=== PATIENT | female | born 2000 | race Hispanic/Latino ===

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

== ENCOUNTER 2019-04-12 22:07 | Observation (INO) | payer MEDICAID ==
[~2019-04-12] VITALS: Ht 157.5 cm; Wt 91.2 kg
[2019-04-12] MEDS ORDERED: LACTATED RINGERS 1000ML 1,000 ML IV SCH ×2 (22:30→23:30)
[2019-04-12 23:02] LABS: APPEARANCE,URINE SLIGHTLY CLOUDY (CLEAR); BILIRUBIN,URINE Negative (NEGATIVE); COLOR,URINE Dark Yellow (YELLOW); GLUCOSE, URINE (UA) Negative (NEGATIVE); KETONES,URINE 15 mg/dL (NEGATIVE); LEUKOCYTE ESTERASE ,URINE Trace (NEGATIVE); NITRATE,URINE Negative (NEGATIVE); OCCULT BLOOD,URINE Negative (NEGATIVE); PROTEIN,URINE POS 1+ mg/dL (NEGATIVE)
[2019-04-12 23:09] LABS: AMPHET/METH SCREEN,URINE NEGATIVE (NEGATIVE); BARBITURATE SCREEN, URINE NEGATIVE (NEGATIVE); BENZODIAZEPINES SCREEN,URINE NEGATIVE (NEGATIVE); CANNABINOID SCREEN,URINE NEGATIVE (NEGATIVE); COCAINE SCREEN,URINE NEGATIVE (NEGATIVE); OPIATE SCREEN,URINE NEGATIVE (NEGATIVE); PHENCYCLIDINE SCREEN,URINE NEGATIVE (NEGATIVE)
[2019-04-12 23:15] LABS: BACTERIA,URINE None Seen /HPF (None Seen); MUCUS,URINE Few LPF (None Seen); RBC,URINE None Seen /HPF (0-1); SQUAMOUS EPITHELIAL CELL,UR Moderate /HPF (0-2); WBC,URINE 0-1 /HPF (0-1)
[2019-04-12] MEDS ORDERED: TERBUTALINE SULFATE VIAL 1MG/ML SQ SCH (23:30)
[2019-04-12] MEDS ORDERED: LACTATED RINGERS 1000ML 1,000 ML IV ONE (23:37)
[2019-04-12] MEDS ORDERED: TERBUTALINE SULFATE VIAL 1MG/ML SQ ONE (23:37)
== END 2019-04-13 01:20 | disposition home or self-care (01) ==
LOC: EDH 22:07 → LDH 22:55
PROVIDERS: ADMIT Obstetrics & Gynecology; ATTEND Obstetrics & Gynecology
DX: O21.2 Late vomiting of pregnancy (principal); O26.892 Other specified pregnancy related conditions, second trimester; M54.9 Dorsalgia, unspecified; Z3A.25 25 weeks gestation of pregnancy; Z79.899 Other long term (current) drug therapy
CPT/HCPCS: 80305; 81001; 96360; 96372; 99284; G0378 ×2; J3105; J7120; 96361

== ENCOUNTER 2020-05-20 23:14 | Emergency (ER) | payer MEDICAID ==
[2020-05-20 23:41] LABS: BASOPHILS % (AUTO) 0.6 % (0.0-5.0); EOSINOPHILS % (AUTO) 3.1 % (0.0-8.0); HEMATOCRIT 39.5 % (36-48); LYMPHOCYTES % (AUTO) 27.7 % (21.0-51.0); MEAN CORPUSCULAR HEMOGLOBIN 28.7 pg (27.0-33.0); MEAN CORPUSCULAR HGB CONC 34.2 g/dL (32.0-36.0); MEAN CORPUSCULAR VOLUME 83.9 fL (80-100); MONOCYTES % (AUTO) 5.3 % (3.0-13.0); PLATELET COUNT (AUTO) 346 K/uL (130-400); RED BLOOD CELL COUNT(AUTO) 4.71 MIL/uL (4.00-5.50); RED CELL DISTRIBUTION WIDTH 12.6 % (11.0-15.5); WHITE BLOOD COUNT (AUTO) 10.5 K/uL (4.8-10.8)
[2020-05-20 23:48] LABS: APPEARANCE,URINE Clear (CLEAR); BILIRUBIN,URINE Negative (NEGATIVE); COLOR,URINE Yellow (YELLOW); GLUCOSE, URINE (UA) Negative (NEGATIVE); KETONES,URINE Negative (NEGATIVE); LEUKOCYTE ESTERASE ,URINE Negative (NEGATIVE); NITRATE,URINE Negative (NEGATIVE); OCCULT BLOOD,URINE Negative (NEGATIVE); PROTEIN,URINE Negative (NEGATIVE)
[2020-05-20 23:51] LABS: CREATININE 0.9 mg/dL (0.5-1.5)
[2020-05-21 00:02] LABS: BILIRUBIN,TOTAL 0.3 mg/dL (0.2-1.0); TOTAL PROTEIN, SERUM 8.5 g/dL (6.0-8.3)
== END 2020-05-21 03:22 | disposition home or self-care (01) ==
LOC: EDH 23:14
DX: O21.9 Vomiting of pregnancy, unspecified (principal); O26.891 Other specified pregnancy related conditions, first trimester; R10.2 Pelvic and perineal pain; Z3A.01 Less than 8 weeks gestation of pregnancy; F90.9 Attention-deficit hyperactivity disorder, unspecified type; F31.9 Bipolar disorder, unspecified
CPT/HCPCS: 36415; 76830; 80053; 81003; 83690; 84702; 85025

== ENCOUNTER 2021-02-09 12:03 | Emergency (ER) | payer MEDICAID ==
[2021-02-09 12:34] LABS: BASOPHILS % (AUTO) 0.4 % (0.0-5.0); EOSINOPHILS % (AUTO) 2.4 % (0.0-8.0); LYMPHOCYTES % (AUTO) 18.5 % (21.0-51.0); MEAN CORPUSCULAR HEMOGLOBIN 29.8 pg (27.0-33.0); MEAN CORPUSCULAR HGB CONC 34.4 g/dL (32.0-36.0); MEAN CORPUSCULAR VOLUME 86.7 fL (80-100); MONOCYTES % (AUTO) 6.1 % (3.0-13.0); NEUTROPHILS % (AUTO) 72.3 % (40.0-77.0); PLATELET COUNT (AUTO) 342 K/uL (130-400); RED CELL DISTRIBUTION WIDTH 12.2 % (11.0-15.5); WHITE BLOOD COUNT (AUTO) 9.5 K/uL (4.8-10.8)
[2021-02-09 12:38] LABS: APPEARANCE,URINE CLEAR (CLEAR); BILIRUBIN,URINE NEGATIVE (NEGATIVE); COLOR,URINE YELLOW (YELLOW); GLUCOSE, URINE (UA) NEGATIVE (NEGATIVE); KETONES,URINE NEGATIVE (NEGATIVE); LEUKOCYTE ESTERASE ,URINE NEGATIVE (NEGATIVE); NITRATE,URINE NEGATIVE (NEGATIVE); OCCULT BLOOD,URINE TRACE-LYSED (NEGATIVE); PH,URINE 6.5 (5.0-8.0); PROTEIN,URINE NEGATIVE (NEGATIVE); UROBILINOGEN,URINE 0.2 mg/dL (0.2-1.0)
[2021-02-09 12:43] LABS: CREATININE 0.7 mg/dL (0.5-1.5); POTASSIUM 4.4 mmol/L (3.5-5.1)
[2021-02-09 12:48] LABS: BACTERIA,URINE Rare /HPF (None Seen); RBC,URINE 0-1 /HPF (0-1); SQUAMOUS EPITHELIAL CELL,UR Rare /HPF (0-2); WBC,URINE 0-1 /HPF (0-1)
[2021-02-09 13:08] LABS: ALBUMIN 3.7 g/dL (3.5-5.0); BILIRUBIN,TOTAL 0.2 mg/dL (0.2-1.0); TOTAL PROTEIN, SERUM 8.3 g/dL (6.0-8.3)
[2021-02-09] MEDS ORDERED: LIDOCAINE HCL-MPF 1% 2ML VIAL ONE (13:20)
[2021-02-09] MEDS ORDERED: CEFTRIAXONE SODIUM 1 GM ONE (13:20)
== END 2021-02-09 14:43 | disposition home or self-care (01) ==
LOC: EDH 12:03
DX: O23.11 Infections of bladder in pregnancy, first trimester (principal); F90.9 Attention-deficit hyperactivity disorder, unspecified type; F31.9 Bipolar disorder, unspecified; Z98.890 Other specified postprocedural states; Z3A.10 10 weeks gestation of pregnancy
CPT/HCPCS: 36415; 76801; 80053; 81001; 83690; 84702; 85025; 96372; 99284; J0696; J3490

== ENCOUNTER 2023-05-31 02:46 | Observation (INO) | payer MEDICAID ==
[~2023-05-31] VITALS: Ht 157.5 cm; Wt 98.9 kg
[2023-05-31] VITALS (27 sets, daily range): BP systolic 98–123; BP diastolic 51–75; PULSE 62–103; RESP 15–20; O2SAT 98–99
[2023-05-31] MEDS ORDERED: ONDANSETRON 4MG INJ IVP ONE (03:00)
[2023-05-31] MEDS ORDERED: 0.9%NACL 1000ML 1,000 ML IV ONE (03:00)
[2023-05-31 03:12] LABS: BASOPHILS # (AUTO) 0.05 K/uL (0.00-0.20); BASOPHILS % (AUTO) 0.3 % (0.0-5.0); EOSINOPHILS # (AUTO) 0.07 K/uL (0.00-0.70); EOSINOPHILS % (AUTO) 0.4 % (0.0-8.0); HEMATOCRIT 37.5 % (36-48); IMMATURE GRANULOCYTE ABSOLUTE 0.08 K/uL (0-1); LYMPHOCYTES # (AUTO) 1.4 K/uL (1.0-4.8); LYMPHOCYTES % (AUTO) 7.9 % (21.0-51.0); MEAN CORPUSCULAR HEMOGLOBIN 29.3 pg (27.0-33.0); MEAN CORPUSCULAR HGB CONC 34.7 g/dL (32.0-36.0); MEAN CORPUSCULAR VOLUME 84.7 fL (79-99); MONOCYTES # (AUTO) 0.6 K/uL (0.1-1.0); MONOCYTES % (AUTO) 3.2 % (3.0-13.0); NEUTROPHILS # (AUTO) 15.2 K/uL (1.8-7.7); NEUTROPHILS % (AUTO) 87.7 % (40.0-77.0); PLATELET COUNT (AUTO) 291 K/uL (130-400); RED BLOOD CELL COUNT(AUTO) 4.43 MIL/uL (4.00-5.50); WHITE BLOOD COUNT (AUTO) 17.4 K/uL (4.8-10.8)
[2023-05-31 03:14] LABS: ADD UA MICROSCOPIC YES; APPEARANCE,URINE CLEAR (CLEAR); BILIRUBIN,URINE NEGATIVE (NEGATIVE); COLOR,URINE LIGHT-YELLOW (YELLOW); GLUCOSE, URINE (UA) NEGATIVE (NEGATIVE); KETONES,URINE 10 mg/dL (NEGATIVE); LEUKOCYTE ESTERASE ,URINE NEGATIVE Leu/uL (NEGATIVE); NITRATE,URINE NEGATIVE (NEGATIVE); PROTEIN,URINE NEGATIVE (NEGATIVE); UROBILINOGEN,URINE 0.2 mg/dL (0.2-1.0)
[2023-05-31 03:16] LABS: HCG,QUALITATIVE URINE NEGATIVE (NEGATIVE); MUCUS,URINE RARE LPF (None Seen); SQUAMOUS EPITHELIAL CELL,UR RARE /HPF (0-2)
[2023-05-31 03:21] LABS: CREATININE 0.7 mg/dL (0.5-1.5); POTASSIUM 3.6 mmol/L (3.5-5.1)
[2023-05-31 03:26] LABS: ALBUMIN 3.7 g/dL (3.5-5.0); BILIRUBIN,TOTAL 0.6 mg/dL (0.2-1.0); TOTAL PROTEIN, SERUM 7.5 g/dL (6.0-8.3)
[2023-05-31 03:30] LABS: WBC MORPHOLOGY CONSISTENT W/DIFF
[2023-05-31] MEDS ORDERED: MORPHINE 4 MG SYG IVP ONE (05:30)
[2023-05-31] MEDS ORDERED: ZOSYN 3.375GM +NS 50ML IVPB ONE (07:00)
[2023-05-31] MEDS: LACTATED RINGERS 1000ML 1,000 ML IV SCH ×2 (08:23→15:48)
[2023-05-31] MEDS: PANTOPRAZOLE 40 MG/VIAL IVP SCH (08:25)
[2023-05-31] MEDS ORDERED: IPRATROPIUM/ALBUTEROL SULFATE 3 ML SOLUTION IH PRN (08:30)
[2023-05-31] MEDS ORDERED: ONDANSETRON 4MG INJ IVP PRN (08:30)
[2023-05-31] MEDS ORDERED: KETOROLAC 15MG/ML VIAL (15MG/ML) IV PRN (08:30)
[2023-05-31] MEDS ORDERED: ACETAMINOPHEN 500 MG TABLET PO PRN (08:30)
[2023-05-31] MEDS ORDERED: MORPHINE 2 MG SYG IVP PRN (08:30)
[2023-05-31 08:37] LABS: INR < 0.93 (0.85-1.15); PROTHROMBIN TIME 10.6 SEC (9.6-11.6)
[2023-05-31 08:38] LABS: PARTIAL THROMBOPLASTIN TIME 27.2 SEC (26.3-35.5)
[2023-05-31 08:41] LABS: SARS-CoV-2, RNA, NAAT NEGATIVE SARS CoV-2 (NEGATIVE)
[2023-05-31 08:45] LABS: HEMOGLOBIN A1C 5.7 % (4.0-6.0)
[2023-05-31 08:48] LABS: MAGNESIUM 1.7 mg/dL (1.80-2.40); THYROID STIMULATING HORMONE 1.42 uIU/mL (0.36-3.74)
[2023-05-31] MEDS ORDERED: MAGNESIUM 2GM PREMIX 50ML 50 ML IV SCH (09:00)
[2023-05-31] MEDS ORDERED: ACET-2079 PO (11:12)
[2023-05-31] MEDS ORDERED: ONDANSETRON 4MG INJ ONE ×2 (11:29→13:52)
[2023-05-31] MEDS ORDERED: PROPOFOL 10 MG/ML 20ML VIAL IV ONE (11:30)
[2023-05-31] MEDS ORDERED: MIDAZOLAM HCL 1 MG/ML 2ML VIAL ONE (11:30)
[2023-05-31] MEDS ORDERED: FENTANYL CITRATE PF 50 MCG/1 ML 2ML VIAL ONE ×2 (11:30→12:32)
[2023-05-31] MEDS ORDERED: ROCURONIUM 10MG/1ML SYR 10 MG/ML ML ONE (11:30)
[2023-05-31] MEDS ORDERED: BUPIVACAINE/PF 0.25% 30ML VIAL IJ ONE (11:37)
[2023-05-31] MEDS ORDERED: NEOSTIGMINE 5MG/5ML SYR IV ONE (12:31)
[2023-05-31] MEDS ORDERED: GLYCOPYRROLATE 1 MG/5 ML SYRINGE ONE (12:31)
[2023-05-31] MEDS ORDERED: 0.9%NACL 50ML IV SCH (13:00)
[2023-05-31] MEDS ORDERED: ZOSYN 3.375GM +NS 50ML IVPB SCH (13:00)
[2023-05-31] MEDS ORDERED: METOCLOPRAMIDE 10 MG/2 ML VIAL ONE (13:52)
[2023-05-31] MEDS: ZOSYN 3.375GM +NS 50ML IVPB SCH (15:48)
[2023-06-01] MEDS: ZOSYN 3.375GM +NS 50ML IVPB SCH ×2 (00:17→08:10)
[2023-06-01 04:00] VITALS: BP 123/68; PULSE 76; RESP 16
[2023-06-01 05:08] LABS: BASOPHILS # (AUTO) 0.03 K/uL (0.00-0.20); BASOPHILS % (AUTO) 0.3 % (0.0-5.0); EOSINOPHILS # (AUTO) 0.11 K/uL (0.00-0.70); EOSINOPHILS % (AUTO) 1.1 % (0.0-8.0); HEMATOCRIT 34.4 % (36-48); IMMATURE GRANULOCYTE ABSOLUTE 0.03 K/uL (0-1); LYMPHOCYTES # (AUTO) 2.5 K/uL (1.0-4.8); LYMPHOCYTES % (AUTO) 26.3 % (21.0-51.0); MEAN CORPUSCULAR HEMOGLOBIN 28.6 pg (27.0-33.0); MEAN CORPUSCULAR HGB CONC 32.6 g/dL (32.0-36.0); MONOCYTES # (AUTO) 0.5 K/uL (0.1-1.0); NEUTROPHILS # (AUTO) 6.4 K/uL (1.8-7.7); PLATELET COUNT (AUTO) 238 K/uL (130-400); RED BLOOD CELL COUNT(AUTO) 3.91 MIL/uL (4.00-5.50); RED CELL DISTRIBUTION WIDTH 12.3 % (11.0-15.5); WHITE BLOOD COUNT (AUTO) 9.6 K/uL (4.8-10.8)
[2023-06-01 05:26] LABS: ALBUMIN 2.8 g/dL (3.5-5.0); BILIRUBIN,TOTAL 0.5 mg/dL (0.2-1.0); CREATININE 0.7 mg/dL (0.5-1.5); MAGNESIUM 1.7 mg/dL (1.80-2.40); POTASSIUM 3.2 mmol/L (3.5-5.1); TOTAL PROTEIN, SERUM 6.4 g/dL (6.0-8.3)
[2023-06-01] MEDS ORDERED: POTASSIUM CHLORIDE 20MEQ/100ML 100 ML IV PRN (07:30)
[2023-06-01] MEDS ORDERED: POTASSIUM CHLORIDE 10% ELIXIR 20 MEQ/15 ML UDCUP PO PRN (07:30)
[2023-06-01 08:00] VITALS: BP 115/69; PULSE 75; RESP 18; O2SAT 96
[2023-06-01] MEDS: PANTOPRAZOLE 40 MG/VIAL IVP SCH (08:09)
[2023-06-01] MEDS: KCL 20 MEQ ERTAB PO PRN ×3 (10:12→12:48)
[2023-06-01] MEDS ORDERED: LACTULOSE 20 GM/30 ML UDCUP PO ONE (11:30)
[2023-06-01 12:00] VITALS: BP_SYST 109; BP_SYST 133; BP_DIAS 50; BP_DIAS 79; PULSE 81; PULSE 83; RESP 18; RESP 20
== END 2023-06-01 16:05 | disposition home or self-care (01) ==
LOC: EDH 02:46 → INTOOBSV 02:47 → EDHIP 02:47 → 3AH 14:10
PROVIDERS: ADMIT Internal Medicine; ATTEND Internal Medicine
DX: K35.80 Unspecified acute appendicitis (principal); Z20.822 Contact with and (suspected) exposure to COVID-19; E66.9 Obesity, unspecified; D72.829 Elevated white blood cell count, unspecified; K76.0 Fatty (change of) liver, not elsewhere classified; F31.9 Bipolar disorder, unspecified; Q33.3 Agenesis of lung; Z98.51 Tubal ligation status; Z68.39 Body mass index [BMI] 39.0-39.9, adult; Z98.891 History of uterine scar from previous surgery; Z79.899 Other long term (current) drug therapy
CPT/HCPCS: 44970; 96361; 96365; 96366 ×2; 96375; 96368; 83036; 84443; 83735 ×2; 80053 ×2; 83690; 85025 ×2; 85610; 85730; 86850; 86900; 86901; 83605; 81001; 81025; 36415 ×2; 88302; 87635; 74176; 99291; 93005; 94664; 96376; J7030 ×2; A4600; A4215; J3010 ×2; J3490 ×3; J2710; J2250; J2405 ×3; J2270; J2543 ×4; S0164 ×2; J2765; A6206; A4649 ×3; G0378 ×6; J3475; C9113; J2704

== ENCOUNTER 2025-01-20 20:44 | Emergency (ER) | payer MEDICAID ==
[~2025-01-20] VITALS: Ht 157.5 cm; Wt 90.7 kg
[~2025-01-20 20:44] MED LIST changes: +ACET-2079 PO; -IOHEXOL-350 75 ML VIAL IV ONE
--- NOTE | 2025-01-20 20:47 | NUR ---
UA CUP PROVIDED
[2025-01-20 21:19] LABS: BASOPHILS # (AUTO) 0.04 K/uL (0.00-0.20); BASOPHILS % (AUTO) 0.4 % (0.0-5.0); EOSINOPHILS # (AUTO) 0.26 K/uL (0.00-0.70); EOSINOPHILS % (AUTO) 2.8 % (0.0-8.0); HEMATOCRIT 39.2 % (36-48); IMMATURE GRANULOCYTE ABSOLUTE 0.04 K/uL (0-1); LYMPHOCYTES # (AUTO) 2.6 K/uL (1.0-4.8); LYMPHOCYTES % (AUTO) 27.5 % (21.0-51.0); MEAN CORPUSCULAR HEMOGLOBIN 29.8 pg (27.0-33.0); MEAN CORPUSCULAR HGB CONC 33.7 g/dL (32.0-36.0); MEAN CORPUSCULAR VOLUME 88.5 fL (79-99); MONOCYTES # (AUTO) 0.5 K/uL (0.1-1.0); MONOCYTES % (AUTO) 5.7 % (3.0-13.0); NEUTROPHILS % (AUTO) 63.2 % (40.0-77.0); PLATELET COUNT (AUTO) 312 K/uL (130-400); RED BLOOD CELL COUNT(AUTO) 4.43 MIL/uL (4.00-5.50); RED CELL DISTRIBUTION WIDTH 12.5 % (11.0-15.5); WHITE BLOOD COUNT (AUTO) 9.4 K/uL (4.8-10.8)
[2025-01-20 21:22] LABS: APPEARANCE,URINE CLEAR (CLEAR); BILIRUBIN,URINE NEGATIVE (NEGATIVE); COLOR,URINE LIGHT-YELLOW (YELLOW); GLUCOSE, URINE (UA) NEGATIVE (NEGATIVE); HCG,QUALITATIVE URINE NEGATIVE (NEGATIVE); KETONES,URINE NEGATIVE (NEGATIVE); LEUKOCYTE ESTERASE ,URINE NEGATIVE Leu/uL (NEGATIVE); NITRATE,URINE NEGATIVE (NEGATIVE); PH,URINE 5.5 (5.0-8.0); PROTEIN,URINE NEGATIVE (NEGATIVE); UROBILINOGEN,URINE 0.2 mg/dL (0.2-1.0)
[2025-01-20 21:23] LABS: ADD UA MICROSCOPIC YES
[2025-01-20 21:25] LABS: BACTERIA,URINE RARE /HPF (None Seen); SQUAMOUS EPITHELIAL CELL,UR RARE /HPF (0-2); YEAST,URINE BUDDING RARE /HPF (None Seen)
[2025-01-20 21:34] LABS: CREATININE 0.6 mg/dL (0.5-1.0); POTASSIUM 4.2 mmol/L (3.5-5.1)
[2025-01-20 21:40] LABS: ALBUMIN 3.6 g/dL (3.5-5.0); BILIRUBIN,DIRECT 0.1 mg/dL (0.0-0.3); BILIRUBIN,TOTAL 0.2 mg/dL (0.2-1.0); TOTAL PROTEIN, SERUM 7.9 g/dL (6.0-8.3)
[2025-01-20] MEDS: ondanSETRON 4MG INJ IVP ONE (21:59)
[2025-01-20] MEDS: 0.9%NACL 1000ML 1,000 ML IV ONE (21:59)
[2025-01-20] MEDS: morPHINE 4 MG SYG IVP ONE (21:59)
--- NOTE | 2025-01-20 22:10 | HMCIMG ---
CT ABDOMEN/PELVIS W/O CONTRAST HISTORY: Right flank pain COMPARISON: 05/31/2023 TECHNIQUE: Multiple sequential axial images of the abdomen and pelvis were obtained from the dome of the diaphragm through symphysis pubis. Patient was not given contrast through intravenous route. Oral contrast was not given. FINDINGS: No pleural effusion is seen bilaterally. There is no evidence of parenchymal disease or pulmonary nodule of the visualized lower lungs. Degenerative changes of the thoracolumbar spine are present. The heart is not enlarged. The liver, spleen, adrenal glands and pancreas are unremarkable. There is no evidence of hydronephrosis bilaterally. No evidence of renal stone is seen. Fecal material is seen in the colon. There are normal size retroperitoneal and mesenteric lymph nodes. No ascites is seen. Appendix has been removed. Pelvic sidewalls are symmetric bilaterally. Bladder is moderately distended. IMPRESSION: 1. No hydronephrosis is seen. No ascites seen. CT was performed with one or more following dose reduction techniques: automated exposure control, adjustment of the mA and kv according to patient's size, or use of a iterative reconstruction technique.
--- NOTE | 2025-01-20 22:16 | ERN ---
ED Note History of Present Illness Stated Complaint: SIDE PAIN Chief Complaint: Flank Pain Time Seen by MD: 20:49 Time Seen by Midlevel: 20:49 Dictation: The patient is a 24-year-old female with a history of , intra-abdominal surgery a year ago, patient unable to recall what surgery they did who presents to the emergency department with complaints of right flank pain onset 1:30 a.m. associated with nausea. Patient denies any hematuria, urinary discomfort, denies fever diarrhea, constipation or vomiting. Allergies: Coded Allergies: No Known Drug Allergies (Unverified Allergy, Unknown, 04/12/19) Home Meds Active Scripts Acetaminophen with Codeine (Acetaminophen-Cod #3 Tablet) 1 Each Tablet, 1 EACH PO Q4HPRN for pain, #30 TAB Prov:DK REY MD 05/31/23 Past Medical History Past Medical History: Other Additional Past Medical Hx: LEARNING DELAY Surgical History: Other RN Note Reviewed/Agreed w/PFSH: Yes Review of System Dictation Constitutional: Negative for fever,chills, and weight loss Eyes: Negative for injury, pain,redness, and discharge ENT: Negative for injury,pain or swelling Cardiovascular: Negative for chest pain, palpitations, and edema Respiratory: Negative for shortness of breath, cough, and wheezing, Abdomen/GI: Negative for abdominal pain, nausea, vomiting, diarrhea, and constipation Back: Negative for injury and pain positive for right flank pain : Negative for injury, bleeding and discharge MS/Extremity: Negative for injury and deformity Skin: Negative for rash, and discoloration Neuro: Negative for headache, weakness, numbness, tingling, and seizure Psych: Negative for suicide ideation, homicidal ideation, and hallucinations Initial Vital Sign VS Vital Signs Date Time Temp Pulse Resp B/P (MAP) Pulse Ox O2 Delivery O2 Flow Rate FiO2 01/20/25 20:45 98.6 91 16 143/74 100 Room Air Physical Exam Dictation Vital Signs reviewed General Appearance: Alert, oriented x 3, no acute distress, well developed, nourished. Head and Face: non-traumatic. Eyes: PERRL, pink conjunctivas, eyelid no trauma, anterior chamber with arcus senilis. Ears: Pinnas intact and no signs of trauma or erythema ear canals clear and no discharge TM no erythema Nose: No discharge, no bleeding. Oropharynx: Mouth normal, tongue pink. pharynx clear,no erythema, tonsils no exudates, no abscesses noted, mucous membrane moist Neck: Supple, non-tender, no thyromegaly, no masses, no JVD, no bruits Breast:Deferred Chest:No tenderness, no crepitus, no paradoxical movement, no retractions Lungs:Clear, well-ventilated, symmetric, no rales, no wheezing, no rhonchi, no stridor, good breath sounds bilaterally Heart: Regular rate, regular rhythm, no murmur, no gallops Vascular: no peripheral edema, Abdomen: Soft, positive bowel sounds, nondistended, no guarding, nontender, no rebound, no masses no hepatomegaly, no splenomegaly, no Schulz's sign, no hernias. Rectal: Deferred Genital: Deferred Neurological: Normal speech, motor function intact, sensory function intact Musculoskeletal: Neck nontender, full range of motion, back nontender, full range of motion, Extremities: nontender, full range of motion Skin: Color pink, dry, no turgor, no rash, no lacerations, no abrasions, no contusions. Lymphatic: Deferred Results (Laboratory/Radiology) Laboratory/Radiology Laboratory Tests Test 01/20/25 21:11 White Blood Count 9.4 K/uL (4.8-10.8) Red Blood Count 4.43 MIL/uL (4.00-5.50) Hemoglobin 13.2 g/dL (12.0-16.0) Hematocrit 39.2 % (36-48) Mean Corpuscular Volume 88.5 fL (79-99) Mean Corpuscular Hemoglobin 29.8 pg (27.0-33.0) Mean Corpuscular Hemoglobin Concent 33.7 g/dL (32.0-36.0) Red Cell Distribution Width 12.5 % (11.0-15.5) Platelet Count 312 K/uL (130-400) Mean Platelet Volume 9.4 fL (7.5-10.5) Immature Granulocyte % (Auto) 0.4 % (0-1) Neutrophils (%) (Auto) 63.2 % (40.0-77.0) Lymphocytes (%) (Auto) 27.5 % (21.0-51.0) Monocytes (%) (Auto) 5.7 % (3.0-13.0) Eosinophils (%) (Auto) 2.8 % (0.0-8.0) Basophils (%) (Auto) 0.4 % (0.0-5.0) Neutrophils # (Auto) 6.0 K/uL (1.8-7.7) Lymphocytes # (Auto) 2.6 K/uL (1.0-4.8) Monocytes # (Auto) 0.5 K/uL (0.1-1.0) Eosinophils # (Auto) 0.26 K/uL (0.00-0.70) Basophils # (Auto) 0.04 K/uL (0.00-0.20) Absolute Immature Granulocyte (auto 0.04 K/uL (0-1) Nucleated Red Blood Cells 0.0 % (0.0-0.19) Urine Color LIGHT-YELLOW (YELLOW) Urine Appearance CLEAR (CLEAR) Urine pH 5.5 (5.0-8.0) Urine Specific [place] 1.022 (1.001-1.031) Urine Protein NEGATIVE mg/dL (NEGATIVE) Urine Glucose (UA) NEGATIVE mg/dL (NEGATIVE) Urine Ketones NEGATIVE mg/dL (NEGATIVE) Urine Occult Blood +- (TRACE) (NEGATIVE) H Urine Nitrate NEGATIVE (NEGATIVE) Urine Bilirubin NEGATIVE mg/dL (NEGATIVE) Urine Urobilinogen 0.2 mg/dL (0.2-1.0) Urine Leukocyte Esterase NEGATIVE Ignacio/uL Urine RBC 2-5 /HPF (0-1) H Urine WBC 2-5 /HPF (0-1) H Urine Squamous Epithelial Cells RARE /HPF (0-2) Urine Bacteria RARE /HPF (None Seen) Urine Yeast RARE /HPF (None Seen) Urine HCG, Qualitative NEGATIVE (NEGATIVE) Sodium Level 137 mmol/L (136-145) Potassium Level 4.2 mmol/L (3.5-5.1) Chloride Level 101 mmol/L (101-111) Carbon Dioxide Level 29 mmol/L (21-32) Blood Urea Nitrogen 10 mg/dL (7-18) Creatinine 0.6 mg/dL (0.5-1.0) Glomerular Filtration Rate Calc 128 mL/min (>90) Random Glucose 109 mg/dL (70-105) H Total Calcium 9.0 mg/dL (8.5-10.1) Total Bilirubin 0.2 mg/dL (0.2-1.0) Direct Bilirubin 0.1 mg/dL (0.0-0.3) Aspartate Amino Transf (AST/SGOT) 16 U/L (10-37) Alanine Aminotransferase (ALT/SGPT) 26 U/L (12-78) Alkaline Phosphatase 95 U/L (50-136) Total Protein 7.9 g/dL (6.0-8.3) Albumin 3.6 g/dL (3.5-5.0) REASON: rigth flank pain, r/o kidney stones ORDERING PHYSICIAN: KINDRA BELTRAN PROCEDURE: ABD PEL WO - CT ABDOMEN/PELVIS W/O CONTRAST CT ABDOMEN/PELVIS W/O CONTRAST HISTORY: Right flank pain COMPARISON: 05/31/2023 TECHNIQUE: Multiple sequential axial images of the abdomen and pelvis were obtained from the dome of the diaphragm through symphysis pubis. Patient was not given contrast through intravenous route. Oral contrast was not given. FINDINGS: No pleural effusion is seen bilaterally. There is no evidence of parenchymal disease or pulmonary nodule of the visualized lower lungs. Degenerative changes of the thoracolumbar spine are present. The heart is not enlarged. The liver, spleen, adrenal glands and pancreas are unremarkable. There is no evidence of hydronephrosis bilaterally. No evidence of renal stone is seen. Fecal material is seen in the colon. There are normal size retroperitoneal and mesenteric lymph nodes. No ascites is seen. Appendix has been removed. Pelvic sidewalls are symmetric bilaterally. Bladder is moderately distended. IMPRESSION: 1. No hydronephrosis is seen. No ascites seen. CT was performed with one or more following dose reduction techniques: automated exposure control, adjustment of the mA and kv according to patient's size, or use of a iterative reconstruction technique. Labs Reviewed?: Yes ED Course ED Course Orders Procedure Category Date Status Time Cbc With Differential LAB 01/20/25 Complete 21:01 Urinalysis Profile LAB 01/20/25 Complete 21:01 0.9%Nacl 1000ml (Ns PHA 01/20/25 Complete 1000ml) 21:30 Morphine 4mg Syg PHA 01/20/25 Complete (Morphine 4mg Syg) 21:30 Ondansetron 4mg Inj PHA 01/20/25 Complete (Zofran 4mg Inj) 21:30 Basic Metabolic Panel LAB 01/20/25 Complete 21:01 ,Urine Test LAB 01/20/25 Complete 21:01 Hepatic Function Panel LAB 01/20/25 Complete 21:01 Ct Abdomen/Pelvis W/O CT 01/20/25 Resulted Contrast 21:24 Lactulose 20 Gm/30 Ml PHA 01/20/25 Verified Udcup (Constulose 23:00 Current Medications Medications (Trade) Dose Ordered Sig/Hyun Route PRN Reason Start Time Stop Time Status Last Admin Dose Admin Morphine Sulfate (morPHINE 4MG SYG) 4 mg ONCE ONCE IVP 01/20/25 21:30 01/20/25 21:31 DC 01/20/25 21:59 Ondansetron HCl (zoFRAN 4MG INJ) 4 mg ONCE ONCE IVP 01/20/25 21:30 01/20/25 21:31 DC 01/20/25 21:59 Sodium Chloride 1,000 ml @ 0 mls/hr ONCE ONCE IV 01/20/25 21:30 01/20/25 21:31 DC 01/20/25 21:59 Vital Signs Date Time Temp Pulse Resp B/P (MAP) Pulse Ox O2 Delivery O2 Flow Rate FiO2 01/20/25 20:45 98.6 91 16 143/74 100 Room Air Medical Decision Making MDM The patient is a 24-year-old female with a history of , intra-abdominal surgery a year ago, patient unable to recall what surgery they did who presents to the emergency department with complaints of right flank pain onset 1:30 a.m. associated with nausea. Patient denies any hematuria, urinary discomfort, denie s fever diarrhea, constipation or vomiting. CBC showed no leukocytosis, no anemia, chemistry showed no electrolyte imbalance, normal renal function, urinalysis showed no leukocyte esterase, no nitrites. CT abdomen and pelvis showed no hydronephrosis, no kidney stones. Fecal material seen in the colon. Patient reports she had a bowel movement today but reports she does have constipation. No other acute pathology. Patient in no acute distress. Stable vital signs we will be discharged to follow up with the his PCP. Differential diagnosis: Kidney stones, pyelonephritis, UTI, back strain Need for hospitalization: Patient does not meet criteria for hospitalization. There are no social concerns with this patient. DX & DISP Disposition: Discharge Departure Impression: Primary Impression: Right flank pain Additional Impression: Constipation Condition: Stable Scripts Lactulose (Lactulose) 10 Gram/15 Ml Solution 30 ML PO BID for constipation, #500 ML 0 Refills Prov: KINDRA BELTRAN 01/20/25 Additional Instructions: Please follow up with your primary doctor in 1-2 days. If symptoms worsen please return to ER. Increase your fiber intake at who with fruits, increase the fluid intake. Take medications as prescribed. FOLLOW-UP WITH PRIMARY CARE PROVIDER IN 1 TO 2 DAYS. TAKE MEDICATIONS DIRECTED HERE IN THE EMERGENCY ROOM. OKAY TO CONTINUE HOME MEDICATIONS UNLESS OTHERWISE DISCUSSED DURING YOUR VISIT IN THE EMERGENCY ROOM TODAY. RETURN TO YOUR NEAREST EMERGENCY ROOM IF SYMPTOMS WORSEN OR IF THERE IS NO IMPROVEMENT. CALL 911 IF YOU NEED IMMEDIATE ASSISTANCE. TAKE TYLENOL OR MOTRIN [id number] NEEDED AND IF NO CONTRAINDICATIONS ARE PRESENT. INCREASE ORAL HYDRATION. A WOUND CULTURE OR URINE CULTURE WAS ORDERED HERE IN THE EMERGENCY ROOM DEPARTMENT PLEASE FOLLOW-UP WITH PRIMARY CARE PROVIDER AND ADVISE THEM TO GET REPEAT PORTS FROM OUR FACILITY. IF YOU HAD ANY KATELIN WRAP/SPLINTS THAT WERE APPLIED HERE, PLEASE DO NOT REMOVE THEM UNTIL YOU SEE YOUR PRIMARY CARE OR SPECIALTY. Referrals: SELF,REFERRAL (PCP) Time of Disposition: 22:33 I have reviewed the case, and I agree with, Diagnosis and Plan KINDRA BELTRAN Jan 20, 2025 22:16
[2025-01-20] MEDS ORDERED: LACT-441 PO (22:34)
[2025-01-20] MEDS: LACTULOSE 20 GM/30 ML UDCUP PO ONE (22:44)
[2025-01-20 23:23] VITALS: BP 96/57; PULSE 75; RESP 18; TEMP 97.9; O2SAT 99
== END 2025-01-20 23:23 | disposition home or self-care (01) ==
LOC: EDH 20:44
DX: K59.00 Constipation, unspecified (principal); R10.9 Unspecified abdominal pain; Z79.899 Other long term (current) drug therapy
CPT/HCPCS: 99285; 74176; 96374; 96375; 80076; 80048; 85025; 81001; 81025; 36415; J7030; J2405; J2270

== ENCOUNTER 2025-02-08 02:17 | Emergency (ER) | payer MEDICAID ==
[~2025-02-08] VITALS: Ht 152.4 cm; Wt 96.2 kg
[~2025-02-08 02:17] MED LIST changes: +LACT-441 PO
--- NOTE | 2025-02-08 02:32 | ERN ---
ED Note History of Present Illness Stated Complaint: C/O CP WITH SOB, ANXIETY Chief Complaint: Shortness of Breath Time Seen by MD: 02:22 Dictation: This is a 24-year-old female who presented to the emergency room with complaints of chest discomfort and shortness of breath and feeling anxious. At presentation she was in hyperventilating state. No fever chills or rigors no cough sputum or hemoptysis. Patient apparently was at [facility] a week ago with similar presentation and a chest x-ray EKG was done. She denied smoking history. And patient had tubal ligation is not on control Temperature 98.7� pulse 112 respirations 20 blood pressure 115/87 pulse oximetry 98% on room air Chronic medical problems include anxiety ADHD and learning delay and extreme obesity with a BMI of 41.4 Patient's Wells score-4.5 points moderate risk-16.2% chance of PE Allergies: Coded Allergies: No Known Drug Allergies (Unverified Allergy, Unknown, 04/12/19) Home Meds Active Scripts Hydroxyzine HCl (Hydroxyzine HCl) 25 Mg Tablet, 1 TAB PO TID for anxiety for 5 Days, #15 TAB 0 Refills Prov:SHEN GALLEGOS MD 02/08/25 Lactulose (Lactulose) 10 Gram/15 Ml Solution, 30 ML PO BID for constipation, #500 ML 0 Refills Prov:KINDRA BELTRAN 01/20/25 Acetaminophen with Codeine (Acetaminophen-Cod #3 Tablet) 1 Each Tablet, 1 EACH PO Q4HPRN for pain, #30 TAB Prov:DK REY MD 05/31/23 Past Medical History Past Medical History: Anxiety, Other Additional Past Medical Hx: ADHD Surgical History: Appendectomy, Other Surgical History Other: Family History: Negative Social History: Negative History: Not Applicable RN Note Reviewed/Agreed w/PFSH: Yes Review of System Dictation Constitutional: Negative for fever,chills, and weight loss Eyes: Negative for injury, pain,redness, and discharge ENT: Negative for injury,pain or swelling Cardiovascular: Negative for chest pain, palpitations, and edema Respiratory: Positive for shortness of breath, denied cough, and wheezing, Abdomen/GI: Negative for abdominal pain, nausea, vomiting, diarrhea, and constipation Back: Negative for injury and pain : Negative for injury, bleeding and discharge MS/Extremity: Negative for injury and deformity Skin: Negative for rash, and discoloration Neuro: Negative for headache, weakness, numbness, tingling, and seizure Psych: Negative for suicide ideation, homicidal ideation, and hallucinations Initial Vital Sign VS Vital Signs Date Time Temp Pulse Resp B/P (MAP) Pulse Ox O2 Delivery O2 Flow Rate FiO2 02/08/25 02:20 98.8 112 20 115/87 98 Room Air 02/08/25 03:11 0 21 Physical Exam Dictation General: awake, alert, morbidly obese female, severe tachypnea using accessory muscles of respiration Head/Face: Normocephalic, atraumatic Eyes: PERRL, EOMI, vision at baseline ENT: oral cavity clear, TMs clear, no signs of infection Neck: Trachea midline, supple, no nuchal rigidity Cardiovascular: RRR, normal S1/S2, No MRGs, no JVD Respiratory: CTAB, no respiratory distress, No rales or wheezes Abdomen: Soft, non-tender, non-distended, normal bowel sounds, no guarding or rebound. Skin: Warm, dry, normal turgor, no rash MS/Extremity: Pulses equal, no cyanosis, neurovascular intact, FROM Neuro: COAx4, GCS 15, strength 5/5, CN 2-12 intact, normal cerebellar exam, normal gait, Psych: Normal behavior, mood, and affect normal Extremities-trace edema without any palpable cords, Homans sign is negative Results (Laboratory/Radiology) Laboratory/Radiology Laboratory Tests Test 02/08/25 03:00 White Blood Count 10.7 K/uL (4.8-10.8) Red Blood Count 4.45 MIL/uL (4.00-5.50) Hemoglobin 13.6 g/dL (12.0-16.0) Hematocrit 38.4 % (36-48) Mean Corpuscular Volume 86.3 fL (79-99) Mean Corpuscular Hemoglobin 30.6 pg (27.0-33.0) Mean Corpuscular Hemoglobin Concent 35.4 g/dL (32.0-36.0) Red Cell Distribution Width 12.3 % (11.0-15.5) Platelet Count 347 K/uL (130-400) Mean Platelet Volume 9.6 fL (7.5-10.5) Immature Granulocyte % (Auto) 0.3 % (0-1) Neutrophils (%) (Auto) 55.3 % (40.0-77.0) Lymphocytes (%) (Auto) 35.5 % (21.0-51.0) Monocytes (%) (Auto) 6.3 % (3.0-13.0) Eosinophils (%) (Auto) 2.0 % (0.0-8.0) Basophils (%) (Auto) 0.6 % (0.0-5.0) Neutrophils # (Auto) 5.9 K/uL (1.8-7.7) Lymphocytes # (Auto) 3.8 K/uL (1.0-4.8) Monocytes # (Auto) 0.7 K/uL (0.1-1.0) Eosinophils # (Auto) 0.22 K/uL (0.00-0.70) Basophils # (Auto) 0.06 K/uL (0.00-0.20) Absolute Immature Granulocyte (auto 0.03 K/uL (0-1) Nucleated Red Blood Cells 0.0 % (0.0-0.19) Sodium Level 137 mmol/L (136-145) Potassium Level 3.9 mmol/L (3.5-5.1) Chloride Level 102 mmol/L (101-111) Carbon Dioxide Level 20 mmol/L (21-32) L Blood Urea Nitrogen 20 mg/dL (7-18) H Creatinine 0.8 mg/dL (0.5-1.0) Glomerular Filtration Rate Calc 105 mL/min (>90) Random Glucose 105 mg/dL (70-105) Total Calcium 9.3 mg/dL (8.5-10.1) Troponin I High Sensitivity 7 ng/L (4-50) B-Type Natriuretic Peptide < 5 pg/mL (0-100) Human Chorionic Gonadotropin, Quant 1 mIU/mL (0-5) Labs Reviewed?: Yes EKG Comment: 12 lead EKG done on 02/08/2025 at 2:26 a.m. a.m. showed a heart rate of 96, MS interval 135, QRS 91, QT/QTC 346/438 Impression normal sinus rhythm with sinus tachycardia no acute STT wave e levations noted EKG rhythm strip-normal sinus rhythm with no acute STT wave changes. Interpreted by ER MD Dr. Gallegos ED Course ED Course Orders Procedure Category Date Status Time 12 Lead Ekg Tracing- EKG 02/08/25 Complete Technical 02:25 O2 Nc Keep Sats CPOE 02/08/25 Transmitted Greater 92% 02:27 Cbc With Differential LAB 02/08/25 Complete 02:27 Hcg,Quantitative LAB 02/08/25 Complete 02:27 Chest 1vw RAD 02/08/25 Taken 02:27 Ipratropium/Albuterol PHA 02/08/25 Complete Neb (Duoneb) 02:30 Alprazolam 0.25mg PHA 02/08/25 Complete (Xanax 0.25mg) 02:30 Basic Metabolic Panel LAB 02/08/25 Complete 02:27 Alprazolam 0.5mg PHA 02/08/25 Complete (Xanax 0.5mg) 04:[address] Ct Chest Pe Protocol CT 02/08/25 Taken Wwo Cont 04:27 B-Type Natriuretic LAB 02/08/25 Complete Peptide 04:27 Troponin I High LAB 02/08/25 Complete Sensitivity 04:27 Iohexol (Omnipaque) PHA 02/08/25 Complete 05:41 Current Medications Medications (Trade) Dose Ordered Sig/Hyun Route PRN Reason Start Time Stop Time Status Last Admin Dose Admin Albuterol (DUOneb) 1 udvial ONCE ONCE IH 02/08/25 02:30 02/08/25 02:31 DC 02/08/25 02:48 Alprazolam (XANax 0.25MG) 0.25 mg ONCE ONCE PO 02/08/25 02:30 02/08/25 02:31 DC 02/08/25 03:02 Alprazolam (XANax 0.5MG) 0.5 mg ONCE ONCE PO 02/08/25 04:00 02/08/25 04:01 DC 02/08/25 04:25 Iohexol (Omnipaque) 75 ml STK-MED ONCE IV 02/08/25 05:41 02/08/25 05:41 DC Vital Signs Date Time Temp Pulse Resp B/P (MAP) Pulse Ox O2 Delivery O2 Flow Rate FiO2 02/08/25 06:47 104 18 136/85 97 Room Air* 0 21 02/08/25 04:27 98.6 102 18 135/74 98 Room Air* 0 21 02/08/25 03:11 106 22 122/88 99 Room Air* 0 21 02/08/25 02:49 99 20 02/08/25 02:20 98.8 112 20 115/87 98 Room Air We will perform diagnostic labs, advanced imaging and administer medications according to the patient's complaint. Once the results are available, will review and personally interpreted the labs to rule out any acute life- threatening emergency the trach require immediate intervention and treatment. I will then re-evaluate the patient after treatment and diagnostic exams have return to determine whether the patient requires any further testing, can safely be discharged home or need further admission to hospital for additional treatment and evaluation. Labs reviewed CBC with a normal limits urine test is serum test is negative BNP 7 is significant for a BUN and creatinine of 20 and 0.8 Chest x-ray unremarkable for any acute infiltrate 5:00 a.m.-I had a long discussion with the patient and spouse and after the anxiolytic patient's respiratory distress is less however she still appears dyspneic to me. With recurrent episodes in initially when she came in she was tachycardic with a heart rate of 112. EKG shows a sinus tachycardia. Even though her Wells score is in the moderate risk category, with a obesity I updated them that I will pursue CT scan of the chest with a PE protocol to evaluate for a PE. If negative patient could have had a panic attack 6:40 a.m. preliminary radiology report for a CT PE protocol-I spoke with Dr. Felix Pham, there is no evidence of PE I updated the patient and her spouse we will discharge her to see a psychiatrist or her primary care physician to follow up for the panic attacks Medical Decision Making MDM MDM: Differential diagnosis: Panic attack, aspiration event, pulmonary thromboembolic disease, flash pulmonary edema Rationale: Tests considered and ordered secondary to shared decision making include: Previous outside records reviewed: Old ER visits. Risk of complication and/or morbidity or mortality of patient management: None Medications-Per medication reconciliation Need for hospitalization: Patient does not meet criteria for hospitalization. Need for emergency major/minor surgery: No There are no social concerns with this patient. Prescription drug management Prescriptions will include symptomatic care Patient's prior external medical records from other ER visits were reviewed by me as indicated. Prior testing and results from previous visits were reviewed. Prior tests were taken into account with medical decision making and resource utilization, independent historian/historians were used to obtain complete medical history. I independently interpreted the test that were performed, results were reviewed by me and considered findings on radiology if ordered. Medical management and examination interpretation discussions were had by me with other qualified healthcare professionals as indicated for the patient's care. Problem List Problem List: (1) Panic attack DX & DISP Disposition: Discharge Departure Impression: Primary Impression: Panic attack Condition: Stable Scripts Hydroxyzine HCl (Hydroxyzine HCl) 25 Mg Tablet 1 TAB PO TID for anxiety for 5 Days, #15 TAB 0 Refills Prov: SHEN GALLEGOS MD 02/08/25 Additional Instructions: Patient and the caregiver have been informed of all the diagnostic tests and the imaging conducted during the today's visit to the emergency room and has verbalized understanding of the results I have personally reviewed and interpreted all diagnostic exams performed here in the ER today as well as the vital signs documented by the nursing staff. The patient is now being discharged to home and should follow up with the primary care physician or the specialist as directed by the ER staff. Follow-up with primary care provider in 1 to 2 days. Take medications as directed here in the emergency room. Okay to continue home medications unless otherwise discussed during your visit in the emergency room today. Return to your nearest emergency room if symptoms worsen or if there is no improvement. Call 911 if you need immediate assistance. Take Tylenol or Motrin [id number] [id number] as needed and if no contraindications are present. Increase oral hydration. A wound culture or urine culture was ordered here in the emergency room department please follow-up with primary care provider and advise them to get repeat ports from our facility. If you had any Anthony wrap/splints that were applied here, please do not remove them until you see your primary care or s pecialty. Referrals: SELF,REFERRAL (PCP) SHEN GALLEGOS MD February 08, 2025 02:32
[2025-02-08] MEDS: IpraTROPium/alBUTERol SULFATE 3 ML SOLUTION IH ONE (02:48)
[2025-02-08 02:49] VITALS: PULSE 99; RESP 20
[2025-02-08] MEDS: ALPRAZolam 0.25 MG TABLET PO ONE (03:02)
[2025-02-08 03:08] LABS: BASOPHILS # (AUTO) 0.06 K/uL (0.00-0.20); BASOPHILS % (AUTO) 0.6 % (0.0-5.0); EOSINOPHILS # (AUTO) 0.22 K/uL (0.00-0.70); HEMATOCRIT 38.4 % (36-48); IMMATURE GRANULOCYTE ABSOLUTE 0.03 K/uL (0-1); LYMPHOCYTES # (AUTO) 3.8 K/uL (1.0-4.8); LYMPHOCYTES % (AUTO) 35.5 % (21.0-51.0); MEAN CORPUSCULAR HEMOGLOBIN 30.6 pg (27.0-33.0); MEAN CORPUSCULAR HGB CONC 35.4 g/dL (32.0-36.0); MEAN CORPUSCULAR VOLUME 86.3 fL (79-99); MONOCYTES # (AUTO) 0.7 K/uL (0.1-1.0); MONOCYTES % (AUTO) 6.3 % (3.0-13.0); NEUTROPHILS # (AUTO) 5.9 K/uL (1.8-7.7); NEUTROPHILS % (AUTO) 55.3 % (40.0-77.0); PLATELET COUNT (AUTO) 347 K/uL (130-400); RED BLOOD CELL COUNT(AUTO) 4.45 MIL/uL (4.00-5.50); RED CELL DISTRIBUTION WIDTH 12.3 % (11.0-15.5); WHITE BLOOD COUNT (AUTO) 10.7 K/uL (4.8-10.8)
--- NOTE | 2025-02-08 03:12 | NUR ---
PT ARRIVED TO ED FOR ANXIETY AND SOB. PT HAS HX OF ANXIETY AND ADHD AND TAKING PRESCRIBED MEDS. PT VOICED AT 0100 STARTED WITH ANXIETY AND WORSTENING SINCE THEN.
[2025-02-08 03:54] LABS: POTASSIUM 3.9 mmol/L (3.5-5.1)
[2025-02-08 04:02] LABS: CREATININE 0.8 mg/dL (0.5-1.0)
[2025-02-08] MEDS: ALPRAZolam 0.5 MG TABLET PO ONE (04:25)
[2025-02-08 04:27] VITALS: TEMP 98.6
[2025-02-08] MEDS ORDERED: IOHEXOL-350 75 ML VIAL IV ONE (05:41)
[2025-02-08] MEDS ORDERED: HYDR-3421 PO (06:26)
--- NOTE | 2025-02-08 06:33 | EKG ---
[facility] Test Date: 2025-02-08 Test Time: 02:26:33 Pat Name: LAUREN ESCAMILLA Department: ED Room: Gender: F Risk Developer: [id number] : 2000 Requested By: SHEN SIM Order Number: [id number] Reading MD: Tico Roberts Measurements Intervals [place] Rate: 96 P: 16 TX: 135 QRS: 71 QRSD: 91 T: 39 QT: 346 QTc: 438 Interpretive Statements Sinus rhythm Compared to ECG 05/31/2023 08:05:01 No significant changes Electronically Signed On 02-08-2025 18:57:37 CDT by Tico Roberts Please click the below link to view image of tracing.
[2025-02-08 06:47] VITALS: BP 136/85; PULSE 104; RESP 18; O2SAT 97
--- NOTE | 2025-02-08 06:54 | NUR ---
[employer] [facility] in [facility] - 02/08/25 at 0654 by KAMRON REPORT GIVEN TO HO CHOWDARY
--- NOTE | 2025-02-08 08:34 | HMCIMG ---
CT angiogram chest CLINICAL INDICATION: sudden shortness fo breath COMPARISON: None. CT Dose Index (CTDI): 113.50 mGy Dose Length Product (DLP): 1408.10 total mGy PROTOCOL: Contrast: 100 cc of Isovue-370, injected IV, no complications Examination is done at 2.5 millimeter volumetric acquisition after contrast administration. Photography is done at 5 millimeter thick intervals for the thorax. FINDINGS: There is no evidence of pulmonary embolism. The airway is intact. The trachea and major bronchi are unremarkable. No pulmonary infiltrates or mass lesions are seen. No pleural effusions are identified. The exam of the shreya and mediastinum is unremarkable. No evidence of hilar enlargement is seen. The aorta shows no aneurysmal dilatation or significant atheromatous calcification. There is no thoracic aortic dissection. No significant brachiocephalic vascular abnormalities are seen. The heart is unremarkable. It is not enlarged. No significant coronary arterial calcifications are seen. There is no pericardial effusion. The rib cage appears unremarkable. The soft tissues of the chest wall are unremarkable. The dorsal spine shows no significant abnormalities. Limited evaluation of the upper abdomen demonstrates no gross abnormalities. IMPRESSION: No evidence of pulmonary embolism. Clear lungs. This study was performed using dose reduction techniques to include automated exposure control and/or adjustment of the mA and/or kV according to patient size.
--- NOTE | 2025-02-08 09:08 | HMCIMG ---
Exam Type: CHEST 1VW Clinical Information: Dyspnea/SOB Comparison: None Findings: The lungs are clear of infiltrates. The heart is normal in size. The bony and soft tissue structures of the chest are unremarkable. Impression: Clear lungs.
== END 2025-02-08 07:07 | disposition home or self-care (01) ==
LOC: EDH 02:17
DX: F41.0 Panic disorder [episodic paroxysmal anxiety] (principal); R10.2 Pelvic and perineal pain; Z90.49 Acquired absence of other specified parts of digestive tract
CPT/HCPCS: 99285; 71270; 71045; 84484; 80048; 83880; 84702; 85025; 36415; 93005; 94640; Q9967

== ENCOUNTER 2025-06-06 12:32 | Emergency (ER) | payer MEDICAID ==
[~2025-06-06] VITALS: Ht 157.5 cm; Wt 97.1 kg
[~2025-06-06 12:32] MED LIST changes: +HYDR-3421 PO
[2025-06-06] MEDS: MAGNESIUM CITRATE 296 ML SOLUTION PO ONE (12:49)
[2025-06-06] MEDS ORDERED: POLY17PO4 PO (13:50)
--- NOTE | 2025-06-06 13:53 | ERN ---
General Chief Complaint: Abdominal Pain Stated Complaint: ABD PAIN Time Seen by MD: 12:37 Time Seen by Midlevel: 12:37 Source: patient History of Present Illness Initial Comments Patient is a 25 y/o female with a PMH of constipation presenting to the ED for evaluation of constipation x2 days ago. last bowel movement is reported x2 days ago. No other concerns at this time. Allergies: Coded Allergies: No Known Drug Allergies (Unverified Allergy, Unknown, 04/12/19) Home Meds Active Scripts Hydroxyzine HCl (Hydroxyzine HCl) 25 Mg Tablet, 1 TAB PO TID for anxiety for 5 Days, #15 TAB 0 Refills Prov:SHEN SIM MD 02/08/25 Lactulose (Lactulose) 10 Gram/15 Ml Solution, 30 ML PO BID for constipation, #500 ML 0 Refills Prov:KINDRA BELTRAN 01/20/25 Acetaminophen with Codeine (Acetaminophen-Cod #3 Tablet) 1 Each Tablet, 1 EACH PO Q4HPRN for pain, #30 TAB Prov:DK REY MD 05/31/23 Past Medical History Past Medical History: Anxiety, Bipolar, Other Medical History Other: ADHD Past Surgical History: Appendectomy, Other Surgical History Other: Family History Family History: Negative Social History Social History: Negative Female( History) History: Not Applicable ROS Dictation CONSTITUTIONAL: Negative except for HPI HEAD/FACE: Negative except for HPI EENT: Negative except for HPI RESPIRATORY: Negative except for HPI GASTROINTESTINAL/ABDOMINAL: Negative except for HPI GENITOURINARY: Negative except for HPI MUSCULOSKELETAL: Negative except for HPI INTEGUMENTARY: Negative except for HPI NEUROLOGICAL/PSYCH: Negative except for HPI HEMATOLOGIC/LYMPHATIC: Negative except for HPI All Systems Negative, Except as noted above. 13 point review of systems assessed and all negative except for above. Physical Exam Physical Exam Dictation Vital Signs reviewed General Appearance: Alert, oriented x 3, no acute distress, well developed, nourished. Head and Face: non-traumatic. Eyes: PERRL, pink conjunctivas, eyelid no trauma, anterior chamber with arcus senilis. Ears: Pinnas intact and no signs of trauma or erythema ear canals clear and no discharge TM no erythema Nose: No discharge, no bleeding. Oropharynx: Mouth normal, tongue pink, pharynx clear,no erythema, tonsils no exudates, no abscesses noted, mucous membrane moist Neck: Supple, non-tender, no thyromegaly, no masses, no JVD, no bruits Breast:Deferred Chest:No tenderness, no crepitus, no paradoxical movement, no retractions Lungs:Clear, well-ventilated, symmetric, no rales, no wheezing, no rhonchi, no stridor, good breath sounds bilaterally Heart: Regular rate, regular rhythm, no murmur, no gallops Vascular: no peripheral edema, Abdomen: Soft, positive bowel sounds, nondistended, no guarding, nontender, no rebound, no masses no hepatomegaly, no splenomegaly, no Schulz's sign, no hernias. Rectal: Deferred Genital: Deferred Neurological: Normal speech, motor function intact, sensory function intact Musculoskeletal: Neck nontender, full range of motion, back nontender, full range of motion, Extremities: nontender, full range of motion Skin: Color pink, dry, no turgor, no rash, no lacerations, no abrasions, no contusions. Lymphatic: Deferred MDM MDM: Differential diagnosis: Constipation, UTI, fecal impaction There are no social concerns with this patient. Prescription drug management Prescriptions will include: Miralax Medical management and examination interpretation discussions were had by me with other qualified healthcare professionals as indicated for the patient's care. ED Course Orders Procedure Category Date Status Time Magnesium Citrate PHA 06/06/25 Complete (Magnesium Citrate) 13:00 *Nursing CPOE 06/06/25 Transmitted Communication: 12:40 Current Medications Medications (Trade) Dose Ordered Sig/Hyun Route PRN Reason Start Time Stop Time Status Last Admin Dose Admin Magnesium Citrate (Magnesium Citrate) 296 ml ONCE ONCE PO 06/06/25 13:00 06/06/25 13:01 DC 06/06/25 12:49 Vital Signs Date Time Temp Pulse Resp B/P (MAP) Pulse Ox O2 Delivery O2 Flow Rate FiO2 06/06/25 12:34 98.2 72 18 135/84 98 DX & DISP Disposition: Discharge Departure Impression: Primary Impression: Constipation Condition: Stable Scripts Polyethylene Glycol 3350 (Miralax) 17 Gram Powd.pack 17 GM PO DAILY for constipation, #20 PACKET 0 Refills Prov: WENCESLAO WARNER 06/06/25 Referrals: SELF,REFERRAL (PCP) Time of Disposition: 13:51 I have reviewed the case, and I agree with, Diagnosis and Plan I performed the substantive portion of the visit. I have reviewed and personally made and approve the management plan that is documented in the note by myself or the BENNIE. I acknowledge for responsibility for the patient's management plan. WENCESLAO WARNER Jun 06, 2025 13:53
[2025-06-06 14:47] VITALS: BP 124/73; PULSE 83; RESP 16; TEMP 97.8; O2SAT 98
== END 2025-06-06 14:52 | disposition home or self-care (01) ==
LOC: EDH 12:32
DX: K59.00 Constipation, unspecified (principal); F41.9 Anxiety disorder, unspecified; F31.9 Bipolar disorder, unspecified; Z90.49 Acquired absence of other specified parts of digestive tract
CPT/HCPCS: 99282

== ENCOUNTER 2025-06-12 21:16 | Emergency (ER) | payer MEDICAID ==
[~2025-06-12] VITALS: Ht 157.5 cm; Wt 96.6 kg
[~2025-06-12 21:16] MED LIST changes: +POLY17PO4 PO
[2025-06-12 21:34] VITALS: TEMP 98.3
[2025-06-12 21:35] LABS: ADD UA MICROSCOPIC YES; APPEARANCE,URINE CLEAR (CLEAR); GLUCOSE, URINE (UA) NEGATIVE (NEGATIVE); LEUKOCYTE ESTERASE ,URINE 75 Leu/uL (NEGATIVE); NITRATE,URINE NEGATIVE (NEGATIVE); OCCULT BLOOD,URINE SMALL (NEGATIVE)
[2025-06-12 21:38] LABS: SQUAMOUS EPITHELIAL CELL,UR RARE /HPF (0-2)
[2025-06-12] MEDS: FAMOTIDINE 20MG VIAL IV ONE (21:45)
[2025-06-12] MEDS: 0.9%NACL 1000ML 1,000 ML IV STA (21:45)
[2025-06-12 21:52] LABS: IMMATURE GRANULOCYTE ABSOLUTE 0.02 K/uL (0-1); NUCLEATED RED BLOOD CELLS 0.0 % (0.0-0.19); PLATELET COUNT (AUTO) 356 K/uL (130-400); RED BLOOD CELL COUNT(AUTO) 4.37 MIL/uL (4.00-5.50); RED CELL DISTRIBUTION WIDTH 12.2 % (11.0-15.5); WHITE BLOOD COUNT (AUTO) 9.5 K/uL (4.8-10.8)
[2025-06-12 22:24] LABS: ASPARTATE AMINOTRANSFERASE 40.0 U/L (10-37); HCG,QUANTITATIVE 0.0 mIU/mL (0-5); TOTAL PROTEIN, SERUM 8.4 g/dL (6.0-8.3)
[2025-06-12 22:26] LABS: CREATININE 0.6 mg/dL (0.5-1.0); GLOMERULAR FILTR. RATE CALC 127.0 mL/min (>90); GLUCOSE,RANDOM 88.0 mg/dL (70-105); SODIUM SERUM 136.0 mmol/L (136-145); UREA NITROGEN, BLOOD 12.0 mg/dL (7-18)
[2025-06-12] MEDS: LIDOCAINE HCL 2% VISCOUS 15 ML UDCUP PO ONE (22:42)
[2025-06-12] MEDS: MAG/ALUM/SIMETH 30 ML UDCUP PO ONE (22:43)
[2025-06-12] MEDS: DICYCLOMINE HCL 10 MG/5 ML ML PO ONE (22:43)
[2025-06-12] MEDS ORDERED: FAMO-136 PO (23:08)
[2025-06-12] MEDS ORDERED: ONDA-243 PO (23:08)
[2025-06-12] MEDS ORDERED: MACR100 PO (23:09)
--- NOTE | 2025-06-12 23:10 | ERN ---
ED Note History of Present Illness Stated Complaint: C/O LEFT LOWER BACK PAIN RADIATING TO ABD X 5 DAYS Chief Complaint: Abdominal Pain Time Seen by MD: 21:19 Time Seen by Midlevel: 21:22 Dictation: 25-year-old female with no past medical history coming in with complaints of epigastric pain and left upper quadrant pain onset about four days ago, no nausea no vomiting or diarrhea. Patient was recently seen here for constipation and states that has resolved, last BM was about an hour and a half ago normal. Allergies: Coded Allergies: No Known Drug Allergies (Unverified Allergy, Unknown, 04/12/19) Home Meds Active Scripts Polyethylene Glycol 3350 (Miralax) 17 Gram Powd.pack, 17 GM PO DAILY for constipation, #20 PACKET 0 Refills Prov:WENCESLAO WARNER 06/06/25 Hydroxyzine HCl (Hydroxyzine HCl) 25 Mg Tablet, 1 TAB PO TID for anxiety for 5 Days, #15 TAB 0 Refills Prov:SHEN SIM MD 02/08/25 Lactulose (Lactulose) 10 Gram/15 Ml Solution, 30 ML PO BID for constipation, #500 ML 0 Refills Prov:KINDRA BELTRAN BANDMILL OPERATOR 01/20/25 Acetaminophen with Codeine (Acetaminophen-Cod #3 Tablet) 1 Each Tablet, 1 EACH PO Q4HPRN for pain, #30 TAB Prov:DK REY MD 05/31/23 Past Medical History Past Medical History: Anxiety, Bipolar, Other Additional Past Medical Hx: HX OF ADHD Surgical History: Appendectomy, Other, Surgical History Other: Family History: Negative Social History: Negative History: Not Applicable LMP: May 09, 2025 Review of System Dictation Constitutional: Negative for fever,chills, and weight loss Eyes: Negative for injury, pain,redness, and discharge ENT: Negative for injury,pain or swelling Cardiovascular: Negative for chest pain, palpitations, and edema Respiratory: Negative for shortness of breath, cough, and wheezing, Abdomen/GI: Complaining of abdominal pain Back: Negative for injury and pain : Negative for injury, bleeding and discharge MS/Extremity: Negative for injury and deformity Skin: Negative for rash, and discoloration Neuro: Negative for headache, weakness, numbness, tingling, and seizure Psych: Negative for suicide ideation, homicidal ideation, and hallucinations Review of Systems: was completed Initial Vital Sign VS Vital Signs Date Time Temp Pulse Resp B/P (MAP) Pulse Ox O2 Delivery O2 Flow Rate FiO2 06/12/25 21:17 98.8 93 20 124/65 100 Room Air 06/12/25 21:34 0 21 Physical Exam Dictation General: awake, alert, NAD Head/Face: Normocephalic, atraumatic Eyes: PERRL, EOMI, vision at baseline ENT: oral cavity clear, TMs clear, no signs of infection Neck: Trachea midline, supple, no nuchal rigidity Cardiovascular: RRR, normal S1/S2, No MRGs, no JVD Respiratory: CTAB, no respiratory distress, No rales or wheezes Abdomen: Soft, non-tender, non-distended, normal bowel sounds, no guarding or rebound. Skin: Warm, dry, normal turgor, no rash MS/Extremity: Pulses equal, no cyanosis, neurovascular intact, FROM Neuro: COAx4, GCS 15, strength 5/5, CN 2-12 intact, normal cerebellar exam, normal gait, Psych: Normal behavior, mood, and affect normal Results (Laboratory/Radiology) Laboratory/Radiology Laboratory Tests Test 06/12/25 21:25 06/12/25 21:41 06/12/25 22:05 Urine Color LIGHT-YELLOW (YELLOW) Urine Appearance CLEAR (CLEAR) Urine pH 6.5 (5.0-8.0) Urine Specific [place] 1.021 (1.001-1.031) Urine Protein NEGATIVE mg/dL (NEGATIVE) Urine Glucose (UA) NEGATIVE mg/dL (NEGATIVE) Urine Ketones NEGATIVE mg/dL (NEGATIVE) Urine Occult Blood SMALL (NEGATIVE) H Urine Nitrate NEGATIVE (NEGATIVE) Urine Bilirubin NEGATIVE mg/dL (NEGATIVE) Urine Urobilinogen 0.2 mg/dL (0.2-1.0) Urine Leukocyte Esterase 75 Ignacio/uL (NEGATIVE) H Urine RBC 6-10 /HPF (0-1) H Urine WBC 11-25 /HPF (0-1) H Urine Squamous Epithelial Cells RARE /HPF (0-2) Urine Bacteria FEW /HPF (None Seen) White Blood Count 9.5 K/uL (4.8-10.8) Red Blood Count 4.37 MIL/uL (4.00-5.50) Hemoglobin 13.1 g/dL (12.0-16.0) Hematocrit 38.1 % (36-48) Mean Corpuscular Volume 87.2 fL (79-99) Mean Corpuscular Hemoglobin 30.0 pg (27.0-33.0) Mean Corpuscular Hemoglobin Concent 34.4 g/dL (32.0-36.0) Red Cell Distribution Width 12.2 % (11.0-15.5) Platelet Count 356 K/uL (130-400) Mean Platelet Volume 9.7 fL (7.5-10.5) Immature Granulocyte % (Auto) 0.2 % (0-1) Neutrophils (%) (Auto) 65.7 % (40.0-77.0) Lymphocytes (%) (Auto) 24.4 % (21.0-51.0) Monocytes (%) (Auto) 7.1 % (3.0-13.0) Eosinophils (%) (Auto) 2.3 % (0.0-8.0) Basophils (%) (Auto) 0.3 % (0.0-5.0) Neutrophils # (Auto) 6.2 K/uL (1.8-7.7) Lymphocytes # (Auto) 2.3 K/uL (1.0-4.8) Monocytes # (Auto) 0.7 K/uL (0.1-1.0) Eosinophils # (Auto) 0.22 K/uL (0.00-0.70) Basophils # (Auto) 0.03 K/uL (0.00-0.20) Absolute Immature Granulocyte (auto 0.02 K/uL (0-1) Nucleated Red Blood Cells 0.0 % (0.0-0.19) Total Bilirubin 0.5 mg/dL (0.2-1.0) Direct Bilirubin 0.1 mg/dL (0.0-0.3) Aspartate Amino Transf (AST/SGOT) 40 U/L (10-37) H Alanine Aminotransferase (ALT/SGPT) 27 U/L (12-78) Alkaline Phosphatase 101 U/L (50-136) Total Protein 8.4 g/dL (6.0-8.3) H Albumin 3.6 g/dL (3.5-5.0) Lipase 28 U/L (16-77) Human Chorionic Gonadotropin, Quant 0 mIU/mL (0-5) Sodium Level 136 mmol/L (136-145) Potassium Level 3.7 mmol/L (3.5-5.1) Chloride Level 101 mmol/L (101-111) Carbon Dioxide Level 29 mmol/L (21-32) Blood Urea Nitrogen 12 mg/dL (7-18) Creatinine 0.6 mg/dL (0.5-1.0) Glomerular Filtration Rate Calc 127 mL/min (>90) Random Glucose 88 mg/dL (70-105) Total Calcium 9.0 mg/dL (8.5-10.1) Labs Reviewed?: Yes ED Course ED Course Orders Procedure Category Date Status Time Cbc With Differential LAB 06/12/25 Complete 21:24 Hepatic Function Panel LAB 06/12/25 Complete 21:24 Lipase LAB 06/12/25 Complete 21:24 Urinalysis Profile LAB 06/12/25 Complete 21:24 Hcg,Quantitative LAB 06/12/25 Complete 21:24 0.9%Nacl 1000ml (Ns PHA 06/12/25 Complete 1000ml) 21:24 Famotidine 20mg Vial PHA 06/12/25 Complete (Pepcid 20mg Vial) 21:30 Ondansetron 4mg Inj PHA 06/12/25 Complete (Zofran 4mg Inj) 21:30 Culture Urine MIAN 06/12/25 In Process 21:36 Basic Metabolic Panel LAB 06/12/25 Complete 21:59 Ceftriaxone 1g Vial PHA 06/12/25 Complete (Rocephine 1g Inj) 22:00 Lidocaine Hcl 2% PHA 06/12/25 Complete Viscous (Lidocaine Hcl 22:30 Mag/Alum/Simeth 30ml PHA 06/12/25 Complete (Maalox Plus 30ml) 22:30 Dicyclomine Hcl PHA 06/12/25 Complete (Bentyl 10mg/5ml 22:30 Current Medications Medications (Trade) Dose Ordered Sig/Hyun Route PRN Reason Start Time Stop Time Status Last Admin Dose Admin Al Hydroxide/Mg Hydroxide (MAALox PLUS 30ML) 30 ml ONCE ONCE PO 06/12/25 22:30 06/12/25 22:39 DC 06/12/25 22:43 Ceftriaxone Sodium (ROCEphine 1G INJ) 1 gm ONCE STAT IVPB 06/12/25 22:00 06/12/25 22:11 DC 06/12/25 22:16 Dicyclomine HCl (Bentyl 10mg/5ml Syrup) 10 mg ONCE ONCE PO 06/12/25 22:30 06/12/25 22:39 DC 06/12/25 22:43 Famotidine (Pepcid 20mg Vial) 20 mg ONCE ONCE IV 06/12/25 21:30 06/12/25 21:31 DC 06/12/25 21:45 Lidocaine HCl (Lidocaine HCl 2% Viscous) 10 ml ONCE ONCE PO 06/12/25 22:30 06/12/25 22:39 DC 06/12/25 22:42 Ondansetron HCl (zoFRAN 4MG INJ) 4 mg ONCE ONCE IVP 06/12/25 21:30 06/12/25 21:31 DC 06/12/25 21:45 Sodium Chloride 1,000 ml @ 1,000 mls/hr Q1H STAT IV 06/12/25 21:24 06/12/25 22:23 DC 06/12/25 21:45 Vital Signs Date Time Temp Pulse Resp B/P (MAP) Pulse Ox O2 Delivery O2 Flow Rate FiO2 06/12/25 21:34 98.2 93 20 124/65 100 Room Air* 0 21 06/12/25 21:17 98.8 93 20 124/65 100 Room Air Medical Decision Making MDM MDM: 25-year-old female with no past medical history coming in with complaints of epigastric pain and left upper quadrant pain onset about four days ago, no nausea no vomiting or diarrhea. Patient was recently seen here for constipation and states that has resolved, last BM was about an hour and a half ago normal. CBC shows no leukocytosis, no anemia, no thrombocytopenia. Chemistry unremarkable. No electrolyte abnormality. No transaminitis. Lipase within normal range. After fluids, and GI cocktail patient states he feels much better. Educated patient more than like she she has gastritis or GERD. Educated to avoid eating any spicy, greasy, fatty foods. Patient admitted to eating this frequent. Educated that they does not resolve after diet change she needs to see a GI specialist. Patient verbalized understanding, answered all questions. Differential diagnosis: GERD, PUD, gastritis Rationale: Tests considered and ordered secondary to shared decision making include: Previous outside records reviewed: Old ER visits. Risk of complication and/or morbidity or mortality of patient management: None Medications-Per medication reconciliation Need for hospitalization: Patient does not meet criteria for hospitalization. Need for emergency major/minor surgery: No There are no social concerns with this patient. Prescription drug management Prescriptions will include symptomatic care Patient's prior external medical records from other ER visits were reviewed by me as indicated. Prior testing and results from previous visits were reviewed. Prior tests were taken into account with medical decision making and resource utilization, independent historian/historians were used to obtain complete medical history. I independently interpreted the test that were performed, results were reviewed by me and considered findings on radiology if ordered. Medical management and examination interpretation discussions were had by me with other qualified healthcare professionals as indicated for the patient's care. DX & DISP Disposition: Discharge Departure Impression: Primary Impression: Gastritis Additional Impression: UTI (urinary tract infection) Condition: Stable Scripts Nitrofurantoin/Nitrofuran Mac (Macrobid) 100 Mg Cap 1 CAP PO BID for 7 Days, #14 CAP 0 Refills Prov: RAMOS ASTUDILLO NP 06/12/25 Famotidine (Pepcid) 20 Mg Tablet 1 TAB PO BID for 30 Days, #60 TAB 0 Refills Prov: RAMOS ASTUDILLO NP 06/12/25 Ondansetron (Ondansetron Odt) 4 Mg Tab.rapdis 4 MG PO Q6HPRN PRN for nausea, #16 TAB 0 Refills Prov: RAMOS ASTUDILLO NP 06/12/25 Additional Instructions: Avoid eating any spicy, greasy, fatty foods. You can also take probiotics to help heal your gut bacteria. Follow up with the PCP in 1-2 days for any worsening symptoms. Referrals: SELF,REFERRAL (PCP) Time of Disposition: 23:08 I have reviewed the case, and I agree with, Diagnosis and Plan RAMOS ASTUDILLO NP Jun 12, 2025 23:10
[2025-06-12 23:13] VITALS: BP 128/72; PULSE 88; RESP 16; O2SAT 100
== END 2025-06-12 23:21 | disposition home or self-care (01) ==
LOC: EDH 21:16
DX: K29.70 Gastritis, unspecified, without bleeding (principal); N39.0 Urinary tract infection, site not specified; F41.9 Anxiety disorder, unspecified; R10.2 Pelvic and perineal pain; F31.9 Bipolar disorder, unspecified; Z90.49 Acquired absence of other specified parts of digestive tract
CPT/HCPCS: 99284; 96374; 96375; 96361; 80076; 80048; 84702; 83690; 85025; 87086 ×2; 87186; 81001; 36415; J3490; J7030; J0696; J2405

== ENCOUNTER 2025-09-15 14:41 | Emergency (ER) | payer MEDICAID ==
[~2025-09-15] VITALS: Ht 152.4 cm; Wt 102.1 kg
[~2025-09-15 14:41] MED LIST changes: +FAMO-136 PO; +MACR100 PO; +ONDA-243 PO
[2025-09-15 14:42] VITALS: BP 142/88; PULSE 68; RESP 18; TEMP 100.2
--- NOTE | 2025-09-15 14:46 | ERN ---
ED Note History of Present Illness Stated Complaint: HEADACHE Chief Complaint: Flu Symptoms Time Seen by MD: 14:44 Dictation: This is a 25-year-old female who presented to the emergency room with complaints of flu type symptoms along with headache body aches cough and congestion that started about 2 days ago. She denied any nausea vomitings diarrhea abdominal pain. No history of any sputum. No wheezing. Temperature a 100.2 pulse 68 respirations 18 blood pressure 142/88 with a pulse oximetry of 98% on room air Chronic problems include anxiety, bipolar, ADHD. Surgical history appy and C- section Allergies: Coded Allergies: No Known Drug Allergies (Unverified Allergy, Unknown, 04/12/19) Home Meds Active Scripts Nitrofurantoin/Nitrofuran Mac (Macrobid) 100 Mg Cap, 1 CAP PO BID for 7 Days, #14 CAP 0 Refills Prov:RAMOS ASTUDILLO [employer] 06/12/25 Famotidine (Pepcid) 20 Mg Tablet, 1 TAB PO BID for 30 Days, #60 TAB 0 Refills Prov:RAMOS ASTUDILLO [employer] 06/12/25 Ondansetron (Ondansetron Odt) 4 Mg Tab.rapdis, 4 MG PO Q6HPRN PRN for nausea, #16 TAB 0 Refills Prov:RAMOS ASTUDILLO CNP 06/12/25 Polyethylene Glycol 3350 (Miralax) 17 Gram Powd.pack, 17 GM PO DAILY for constipation, #20 PACKET 0 Refills Prov:WENCESLAO WARNER PAC 06/06/25 Hydroxyzine HCl (Hydroxyzine HCl) 25 Mg Tablet, 1 TAB PO TID for anxiety for 5 Days, #15 TAB 0 Refills Prov:SHEN SIM MD 02/08/25 Lactulose (Lactulose) 10 Gram/15 Ml Solution, 30 ML PO BID for constipation, #500 ML 0 Refills Prov:KINDRA BELTRAN 01/20/25 Acetaminophen with Codeine (Acetaminophen-Cod #3 Tablet) 1 Each Tablet, 1 EACH PO Q4HPRN for pain, #30 TAB Prov:DK REY MD 05/31/23 Past Medical History Past Medical History: Anxiety, Bipolar, Other Additional Past Medical Hx: HX OF ADHD Surgical History: Appendectomy, Other, Surgical History Other: Family History: Negative Social History: Negative History: Not Applicable RN Note Reviewed/Agreed w/PFSH: Yes Review of System Dictation Constitutional: Positive for fever, body aches, congestion Eyes: Negative for injury, pain,redness, and discharge ENT: Negative for injury,pain or swelling Cardiovascular: Negative for chest pain, palpitations, and edema Respiratory: Negative for shortness of breath, cough, and wheezing, Abdomen/GI: Negative for abdominal pain, nausea, vomiting, diarrhea, and constipation Back: Negative for injury and pain : Negative for injury, bleeding and discharge MS/Extremity: Negative for injury and deformity Skin: Negative for rash, and discoloration Neuro: Negative for , weakness, numbness, tingling, and seizure positive for headache Psych: Negative for suicide ideation, homicidal ideation, and hallucinations Initial Vital Sign VS Vital Signs Date Time Temp Pulse Resp B/P (MAP) Pulse Ox O2 Delivery O2 Flow Rate FiO2 09/15/25 14:42 100.2 68 18 142/88 98 Physical Exam Dictation General: awake, alert, NAD Head/Face: Normocephalic, atraumatic Eyes: PERRL, EOMI, vision at baseline ENT: oral cavity clear, TMs clear, no signs of infection Neck: Trachea midline, supple, no nuchal rigidity Cardiovascular: RRR, normal S1/S2, No MRGs, no JVD Respiratory: CTAB, no respiratory distress, No rales or wheezes Abdomen: Soft, non-tender, non-distended, normal bowel sounds, no guarding or rebound. Skin: Warm, dry, normal turgor, no rash MS/Extremity: Pulses equal, no cyanosis, neurovascular intact, FROM Neuro: COAx4, GCS 15, strength 5/5, CN 2-12 intact, normal cerebellar exam, normal gait, Psych: Normal behavior, mood, and affect normal Extremities-trace edema without any palpable cords, Homans sign is negative Results (Laboratory/Radiology) Laboratory/Radiology Laboratory Tests Test 09/15/25 15:15 Influenza Type A Antigen Negative For Type A Influenza Type B Antigen Negative For Type B SARS-CoV-2 Antigen (Rapid) PRESUMPTIVE NEGATIVE Group A Streptococcus Rapid negative (NEGATIVE) Labs Reviewed?: Yes ED Course ED Course Orders Procedure Category Date Status Time Influenza Type A & B, LAB 09/15/25 Complete Rapid 14:45 Covid19 (Sars Antigen LAB 09/15/25 Complete Rapid) 14:45 Rapid (Group A Strep) LAB 09/15/25 Complete 14:45 Ketorolac PHA 09/15/25 Complete Tromethamine 30mg/Ml 16:30 Current Medications Medications (Trade) Dose Ordered Sig/Hyun Route PRN Reason Start Time Stop Time Status Last Admin Dose Admin Ketorolac Tromethamine (toRADol) 30 mg ONCE ONCE IM 09/15/25 16:30 09/15/25 16:31 DC Vital Signs Date Time Temp Pulse Resp B/P (MAP) Pulse Ox O2 Delivery O2 Flow Rate FiO2 09/15/25 14:42 100.2 68 18 142/88 98 Medical Decision Making MDM Differential diagnosis: Influenza, COVID, RSV, streptococcal pharyngitis, otitis media, acute viral syndrome This is a 25-year-old female who presented to the emergency room with complaints of flu type symptoms along with headache body aches cough and congestion that started about 2 days ago. She denied any nausea vomitings diarrhea abdominal pain. No history of any sputum. No wheezing. Temperature a 100.2 pulse 68 respirations 18 blood pressure 142/88 with a pulse oximetry of 98% on room air Chronic problems include anxiety, bipolar, ADHD. Surgical history appy and C- section 4:20 p.m. nasopharyngeal swabs for influenza, COVID and streptococcal infection were all negative. I updated the patient and explained to her that she still has not upper respiratory infection likely related to a viral syndrome. Only symptomatic treatment at this time with no indication for antibiotics Rationale: Tests considered and ordered secondary to shared decision making include: Nasopharyngeal swabs Previous outside records reviewed: Old ER visits. Risk of complication and/or morbidity or mortality of patient management: None Medications-Per medication reconciliation Need for hospitalization: Patient does not meet criteria for hospitalization. Need for emergency major/minor surgery: No There are no social concerns with this patient. Prescription drug management Prescriptions will include symptomatic care Patient's prior external medical records from other ER visits were reviewed by me as indicated. Prior testing and results from previous visits were reviewed. Prior tests were taken into account with medical decision making and resource utilization, independent historian/historians were used to obtain complete medical history. I independently interpreted the test that were performed, results were reviewed by me and considered findings on radiology if ordered. Medical management and examination interpretation discussions were had by me with other qualified healthcare professionals as indicated for the patient's care. Problem List Problem List: (1) Upper respiratory infection with cough and congestion (2) Acute viral syndrome DX & DISP Disposition: Discharge Departure Impression: Primary Impression: Upper respiratory infection with cough and congestion Additional Impression: Acute viral syndrome Condition: Stable Additional Instructions: Patient and the caregiver have been informed of all the diagnostic tests and the imaging conducted during the today's visit to the emergency room and has verbalized understanding of the results I have personally reviewed and interpreted all diagnostic exams performed here in the ER today as well as the vital signs documented by the nursing staff. The patient is now being d ischarged to home and should follow up with the primary care physician or the specialist as directed by the ER staff. 1 schedule a follow-up appointment; call your primary care physician's office on the next business day to set up a follow-up appointment. 2. Monitor symptoms; if your symptoms worsen return to the emergency room immediately. 3. Return to school/work; you may return to work or school in 2 days or as directed by your primary care physician. 4. Manage pain and fever; take [id number] Tylenol or Advil for pain or fever if there are no contraindications follow the recommended dosage instructions. 5. Stay well hydrated; drink plenty of oral fluids to stay hydrated. 6. Take prescribed medications; take any medications prescribed in the emergency room as directed bring them with you to your primary care physician visit for possible adjustments. 7. Complete medication course; finish the entire course of medication as prescribed even if you start feeling better. Do not have any leftover medic ation unless instructed otherwise. 8. Follow up on culture results; if a urine culture and wound culture was ordered in the emergency room please follow-up with your primary care physician within 2-3 days to review the culture and sensitivity report for appropriate antibiotic therapy adjustments. 9. Resume home medications; you may resume taking your home medications unless instructed otherwise. Referrals: SELF,REFERRAL (PCP) SHEN SIM MD Sep 15, 2025 14:46
[2025-09-15 15:52] LABS: RAPID GROUP A STREP negative (NEGATIVE)
[2025-09-15 16:07] LABS: INFLUENZA TYPE A Negative For Type A (NEGATIVE); INFLUENZA TYPE B Negative For Type B (NEGATIVE)
[2025-09-15 16:09] LABS: COVID19 (SARS ANTIGEN RAPID) PRESUMPTIVE NEGATIVE (NEGATIVE)
== END 2025-09-15 17:12 | disposition home or self-care (01) ==
LOC: EDH 14:41
DX: J06.9 Acute upper respiratory infection, unspecified (principal); B34.9 Viral infection, unspecified; F31.9 Bipolar disorder, unspecified; F41.9 Anxiety disorder, unspecified; F90.9 Attention-deficit hyperactivity disorder, unspecified type; Z90.49 Acquired absence of other specified parts of digestive tract; Z98.890 Other specified postprocedural states; Z20.822 Contact with and (suspected) exposure to COVID-19
CPT/HCPCS: 99283; 87426; 87880; 87804 ×2; 96372; J1885